=== PATIENT | female | born 1985 | race Caucasian/White ===

== ENCOUNTER 2016-11-08 08:28 | Inpatient (IN) | payer OTHER ==
[~2016-11-08] VITALS: Ht 157.5 cm; Wt 75.7 kg
[2016-11-08 09:01] LABS: HEMOGLOBIN 13.2 gm/dl (12.3-15.3); RED BLOOD COUNT 4.17 M/UL (4.00-5.10); WHITE BLOOD COUNT 7.5 K/UL (4.5-11.0)
[2016-11-09 02:38] LABS: HEMOGLOBIN 12.3 gm/dl (12.3-15.3)
[2016-11-09] MEDS ORDERED: COLACE 100MG C100 MG PO (11:16)
== END 2016-11-09 15:46 | disposition home or self-care (01) | DRG 775 ==
LOC: GENOP 08:28 → OB 08:38
PROVIDERS: Obstetrics & Gynecology; ADMIT Obstetrics & Gynecology
PROC: 10E0XZZ Delivery of Products of Conception, External Approach (ICD-10-PCS; principal; 2016-11-08)
PROC: 3E0R3CZ (ICD-10-PCS; 2016-11-08)
DX: O99.72 Diseases of the skin and subcutaneous tissue complicating childbirth (principal); L23.7 Allergic contact dermatitis due to plants, except food; O99.214 Obesity complicating childbirth; E66.9 Obesity, unspecified; Z68.30 Body mass index [BMI] 30.0-30.9, adult; Z3A.37 37 weeks gestation of pregnancy; Z37.0 Single live birth
CPT/HCPCS: 36415; 82800; 85014; 85018; 85025; J2590; J2795; J3010; J7120; Q0163

== ENCOUNTER 2021-06-02 10:44 | Inpatient (IN) | payer OTHER ==
[~2021-06-02] VITALS: Ht 157.5 cm; Wt 68.9 kg
[~2021-06-02 10:44] MED LIST: COLACE 100MG C100 MG PO
[2021-06-02 12:17] LABS: HEMOGLOBIN 11.4 gm/dl (12.3-15.3); RED BLOOD COUNT 3.78 M/UL (4.00-5.10); WHITE BLOOD COUNT 7.3 K/UL (4.5-11.0)
[2021-06-02] MEDS ORDERED: HYDROCODON-ACE1 EAC4 PO (14:26)
[2021-06-02] MEDS ORDERED: IBUPROFEN800 MG PO (14:26)
[2021-06-02] MEDS ORDERED: DOCUSATE SODIU100 MG PO (14:26)
[2021-06-03 08:11] LABS: HEMOGLOBIN 11.3 gm/dl (12.3-15.3)
== END 2021-06-03 19:38 | disposition home or self-care (01) | DRG 807 ==
LOC: GENOP 10:44 → OB 11:54
PROVIDERS: ADMIT Obstetrics & Gynecology
PROC: 10E0XZZ Delivery of Products of Conception, External Approach (ICD-10-PCS; principal; 2021-06-02)
PROC: 10H07YZ Insertion of Other Device into Products of Conception, Via Natural or Artificial Opening (ICD-10-PCS; 2021-06-02)
PROC: 4A1H7FZ Monitoring of Products of Conception, Cardiac Rhythm, Via Natural or Artificial Opening (ICD-10-PCS; 2021-06-02)
PROC: 10H073Z Insertion of Monitoring Electrode into Products of Conception, Via Natural or Artificial Opening (ICD-10-PCS; 2021-06-02)
DX: O75.5 Delayed delivery after artificial rupture of membranes (principal); Z37.0 Single live birth; Z20.822 Contact with and (suspected) exposure to COVID-19; Z3A.37 37 weeks gestation of pregnancy
CPT/HCPCS: 82800; 85014; 85018; 85025; J2405; J7120; U0002